=== PATIENT | female | born 1955 | race Caucasian/White ===

== ENCOUNTER → 2021-02-12 09:44 | Outpatient (BNVA) | payer BC, SELFPAY | PROVIDERS: PCP Ophthalmology; Visit Provider Nurse Practitioner Family ==

== ENCOUNTER → 2022-02-23 12:57 | Outpatient (BNVA) | payer BC, SELFPAY | PROVIDERS: PCP Nurse Practitioner Family; Visit Provider Nurse Practitioner Family | DX: G47.33 Obstructive sleep apnea (adult) (pediatric) (principal) ==

== ENCOUNTER 2022-08-24 07:49 | Outpatient (AMB) | payer BC, SELFPAY ==
[2022-08-24 07:55] VITALS: BP 128/78; PULSE 65; O2SAT 98; BMI 29.4
--- NOTE | 2022-08-24 07:55 | MHC.OFFVIS ---
Intake Vital Signs 08/24/22 07:55 Height 5 ft 10 in Weight 205 lb 3 oz BMI 29.4 BP 128/78 Blood Pressure Location Rt brachial Position Sitting Pulse 65 Pulse Source Pulse Oximeter Pulse Oximetry (%) 98 Oxygen Delivery Method Room Air Intake Visit Reasons: 6m follow up Intake Note: Pt presents as a 6 month f/u for MARCELINA. Pt states they are going alright. Reconnaissance Crewmember Required: No Allergies doxycycline Allergy (Mild, Verified 08/24/22 08:00) Itchy Throat shellfish derived Allergy (Verified 08/24/22 08:00) Hives HPI HPI Comments History of Present Illness Details yr-old fe/male presents for follow-up visit. Pt denies any significant interval medical history changes. She reports she is tolerating the last adjust to her APAP settings. Does not notice zaida increased pressure- as her ramp time is longer. She is sleeping well with PAP. She does read in bed on a tablet- but this does not affect her ability to initiate or maintain sleep. She takes her CPAP with her when traveling. Her 90 day APAP reports reveals APAP 5-18 cmH2O w/ 100% overall use, 99% use > 4 hours, average use 6 hrs 12 min, max pressure 17.4 cmH2O, residual AHI 5.3/hr (previous residual AHI on APAP [id number] was 6.7/hr, and prior to that 8.6/hr). ? ? ? PFSH Family History (Updated 08/24/22 @ 08:02 by Tawana Tenorio CMA) Mother Depression Breast cancer Dementia Sister MARCELINA (obstructive sleep apnea) Father Hypertension Social History (Updated 08/24/22 @ 08:02 by Tawana Tenorio CMA) Alcohol intake: current Alcohol intake frequency: holidays/special occasions only Patient Tobacco Use Status: Never used Tobacco Review of Systems Const All systems reviewed & are unremarkable except as noted in HPI and below Physical Exam Vital Signs: Last Vital Signs Pulse 65 08/24/22 07:55 BP 128/78 08/24/22 07:55 Pulse Ox 98 08/24/22 07:55 Oxygen Delivery Method Room Air 08/24/22 07:55 BMI result Body Mass Index 29.4 Const General: no acute distress Orientation/consciousness: patient oriented x3 HEENT Head: Yes normocephalic Resp Effort & Inspection: normal respiratory effort and able to speak in complete sentences Neuro General: patient oriented x3 Psych Mental Status: mental status grossly normal Speech and movement: Clear speech present Attitude: cooperative Results Reviewed Results Reviewed: PAP compliance report- see HPI Assessment & Plan Assessment & Plan (1) Obstructive sleep apnea: Code(s): G47.33 - Obstructive sleep apnea (adult) (pediatric) Plan Residual AHI continues to be higher than goal of < 5/hr, max pressure of 17.4 cmH2O is near upper pressure limit of 18. Pt previously did not tolerate APAP set to 5-20 cmH2O, however pt is willing to retry w/ the longer ramp time. I have adjusted the settings to APAP to 5-20 cmH2O via the [employer] sachi. Clean machine and supplies daily- may use CPAP mask liner wipes.. Change PAP supplies routinely. Pt to call us/respiratory home care company with any concerns f/u in 6 months or sooner prn. Coding Level of Care Code Est Pt Level 3 (06900) Diagnoses Obstructive sleep apnea G47.33
== END 2022-08-24 08:40 | disposition home or self-care (01) ==
PROVIDERS: Visit Provider Nurse Practitioner Family
DX: G47.33 Obstructive sleep apnea (adult) (pediatric) (principal)
CPT/HCPCS: 99213

== ENCOUNTER → 2022-08-24 07:49 | Outpatient (BNVA) | payer BC, SELFPAY | PROVIDERS: Visit Provider Nurse Practitioner Family ==

== ENCOUNTER 2023-02-27 07:51 | Outpatient (AMB) | payer BC, SELFPAY ==
[2023-02-27 08:07] VITALS: BP 122/78; PULSE 56; O2SAT 99; BMI 29.6
--- NOTE | 2023-02-27 08:07 | MHC.OFFVIS ---
Intake Vital Signs 02/27/23 08:07 Height 5 ft 10 in Weight 206 lb BMI 29.6 BP 122/78 Blood Pressure Location Rt brachial Position Sitting Pulse 56 Pulse Source Pulse Oximeter Pulse Oximetry (%) 99 Oxygen Delivery Method Room Air Intake Visit Reasons: 6m follow up/LVM Intake Note: Patient presents for 6 month follow up. Im using my cpap machine, she turned up the cpap and think that's why Im here Allergies doxycycline Allergy (Mild, Verified 02/27/23 08:13) Itchy Throat shellfish derived Allergy (Verified 02/27/23 08:13) Hives Medication List - Last Reconciled 02/27/23 by Allegra Art, RUSSEL bimatoprost 0.01% (Lumigan) 1 drp ophthalmic (eye) DAILY brimonidine 0.1% (Alphagan P) 1 drp ophthalmic (eye) Q8H dorzolamide-timolol 22.3-6.8 mg/mL (Cosopt) 1 drp ophthalmic (eye) BID propranolol ER 80 mg PO DAILY ubrogepant (Ubrelvy) 50 - 100 mg (0.5 - 1 x 100 mg) PO ONCE PRN 30 days HPI HPI Comments History of Present Illness Details 67-yr-old female presents for follow-up visit of MARCELINA Pt would like to discuss a new concern today. She reports she has been having new prolonged episodes of right eye visual aura w/o headache. She describes this as Right eye full visual field blurriness, like a film covering the eye, f/b eye feeling warm/swollen, retro-orbital hot swollen discomfort, the vision becomes cloudier and blurrier. Always feels photophobic. Can have frustration and just wants to sit still. The entire attack last 10 days. There is 1 day where the vision improves, then the episode resolve within a few days. Once has the start of symptoms in the left eye- but did not fully progress.. Denies N/V, red eye, watery eye, facial droop. Has had recent eye exam during an episode- unremarkable Was started on Propranolol Er 80mg qam- and the episodes are shorter- now lasting only 30%. Tried Zolmitriptan- did not help. She does have a h/o sporadic moderate migraine d/t stress since the late - Started w/ unilateral right sided blurry vision f/b right temporal pain a/w seeing pixelated images. Not a/w photo/phonophobia, N/V, allodynia. These would last days. Was Zolmitriptan responsive- however it causes nausea and joint pain. In the past, she has tried Sumatriptan- did not tolerate- caused jaw tightness. Her last Brain MRI w/o contrast was 2-3 yrs after she had 2-3 unprovoked falls. She has is doing well with her CPAP after the last visit when we increased her APAP range. Sleeps better with APAP. Residual AHI is now < 4/hr. 01/28/2023 - 02/26/2023 Compliance Report: Usage days: 30/30 days (100%) >= 4 hours 30 days (100%) Average usage (days used) 6 hours 2 minutes AirSense 10 AutoSet Serial number [id number] Mode AutoSet Min Pressure 5 cmH2O Max Pressure 20 cmH2O EPR Fulltime EPR level 3 Response Standard Therapy Maximum Pressure Maximum: 16.9 Residual AHI: 3.4 PFSH Medical History (Updated 02/27/23 @ 09:46 by RUSSEL Kevin) Glaucoma Family History Mother Depression Breast cancer Dementia Sister MARCELINA (obstructive sleep apnea) Father Hypertension Social History (Updated 08/24/22 @ 08:02 by Tawana Tenorio [facility]) Alcohol intake: current Alcohol intake frequency: holidays/special occasions only Patient Tobacco Use Status: Never used Tobacco Review of Systems Const All systems reviewed & are unremarkable except as noted in HPI and below Physical Exam Vital Signs: Last Vital Signs Pulse 56 02/27/23 08:07 BP 122/78 02/27/23 08:07 Pulse Ox 99 02/27/23 08:07 Oxygen Delivery Method Room Air 02/27/23 08:07 BMI result Body Mass Index 29.6 Const General: no acute distress Orientation/consciousness: patient oriented x3 HEENT Head: Yes normocephalic Resp Effort & Inspection: normal respiratory effort and able to speak in complete sentences Auscultation: clear to auscultation bilaterally Cardio Rate: regular rate Rhythm: regular rhythm Neuro General: patient oriented x3 Psych Mental Status: mental status grossly normal Speech and movement: Clear speech present Attitude: cooperative Results Reviewed Results Reviewed: PAP compliance report- see HPI Assessment & Plan Assessment & Plan (1) Transient visual loss: Comment: Prolonged bouts of right eye vision blurriness/loss lasting up to 10 days Code(s): H53.129 - Transient visual loss, unspecified eye (2) Pain, eye, right: Comment: a/w right eye visual disturbance Code(s): H57.11 - Ocular pain, right eye (3) Migraine with aura: Code(s): G43.109 - Migraine with aura, not intractable, without status migrainosus (4) Obstructive sleep apnea: Code(s): G47.33 - Obstructive sleep apnea (adult) (pediatric) Plan Continue APAP [id number] nightly > 4 hrs, as pt is having good clinical effect from use. Regarding prolonged right eye vision disturbance and eye pain: Will request recent labs from PCP. Pt is advised to undergo Brain MRI w/wo and Brain MRA w/o to assess for secondary etiologies of new onset unilateral visio symptoms in a 67 yo pt, such as inflammatory or vascular processes. Continue Propranolol ER 80mg qam, as this has been helpful- note this does not rule-out secondary etiology for pt's s/s. Trial Ubrogepant 50-100mg at onset of visual aura or migraine attack, may take w/ Zolmitriptan or Ibuprofen. Previous acute headache treatment trials: Sumatriptan- caused jaw pain. Follow-up upon review of above and in 3 months or sooner prn. Orders: Orders MR head/brain wo/w con Today H53.129 - Transient visual loss, unspecified eye, H57.11 - Ocular pain, right eye MR angio head wo con Today H53.129 - Transient visual loss, unspecified eye, H57.11 - Ocular pain, right eye Medications: New ubrogepant (Ubrelvy) take at onset of migraine, may repeat in 2hrs (may take w/ Ibuprofen or Zolmitriptan) 50 - 100 mg (0.5 - 1 x 100 mg) PO ONCE 30 days PRN 16 tabs 3RF migraine headache Coding Level of Care Code Est Pt Level 4 (78382) Diagnoses Transient visual loss H53.129 Pain, eye, right H57.11 Migraine with aura G43.109 Obstructive sleep apnea G47.33
== END 2023-02-27 09:06 | disposition home or self-care (01) ==
PROVIDERS: PCP Nurse Practitioner Family; Visit Provider Nurse Practitioner Family
DX: H53.129 Transient visual loss, unspecified eye (principal); H57.11 Ocular pain, right eye; G43.109 Migraine with aura, not intractable, without status migrainosus; G47.33 Obstructive sleep apnea (adult) (pediatric)
CPT/HCPCS: 99214

== ENCOUNTER → 2023-02-27 07:51 | Outpatient (BNVA) | payer BC, SELFPAY | PROVIDERS: PCP Nurse Practitioner Family; Visit Provider Nurse Practitioner Family ==

== ENCOUNTER 2023-02-28 07:53 | Outpatient (REF) | payer BC, SELFPAY | END 2023-02-28 07:54 | disposition home or self-care (01) | LOC: HO.SH 07:53 | PROVIDERS: Visit Provider Nurse Practitioner Family | DX: Z01.118 Encounter for examination of ears and hearing with other abnormal findings (principal); H90.3 Sensorineural hearing loss, bilateral | CPT/HCPCS: 92557 ==

== ENCOUNTER 2023-03-03 09:44 | Outpatient (REF) | payer SELFPAY ==
--- NOTE | 2023-03-03 10:39 | MHC.AU.HA1 ---
Hearing Aid Evaluation Date of Visit: 03/03/23 Historical Information: Description of Hearing: Within normal gradually sloping to moderate to severe sensorineural hearing loss, bilateral. Summary: Hearing recently evaluated on 02/28/23. Ready to proceed with amplification. Reviewed style, performance levels, costs. Karin does get out and about in various social situations and would like to hear as well as possible in those more challenging environments. She would like rechargeable aids for convenience. She has an iPhone. Hearing Aid Prescription: Based on the individual?s shared listening needs, communication environments, dexterity, desire for connectivity, and personal preferences, the following prescription for amplification has been made: Right ear: Make, Model, Color: Ot[employer] Universe Real 1 miniRITE R terracotta Battery Size: Rechargeable Cellophane Bag Machine Operator/Slim Tube: 2/ Type of Earmold/Dome/CShell/SlimTip: 8mm open upton Accessories/Assistive Technology Recommended: commissioned sales associate Plan of Care: Patient wishes to purchase hearing aids as prescribed Action Taken/Action Needed: Medical Clearance to be requested from PCP/ENT Hearing Instrument Fitting to be scheduled when materials arrive Primary Diagnosis: H90.3 Bilateral Sensorineural Hearing Loss Signature: Provider: Jodi Llamas, CCC-A
== END 2023-03-03 09:45 | disposition home or self-care (01) ==
LOC: HO.HAP 09:44
PROVIDERS: Visit Provider Nurse Practitioner Family
DX: Z46.1 Encounter for fitting and adjustment of hearing aid (principal); H90.3 Sensorineural hearing loss, bilateral
CPT/HCPCS: 92590

== ENCOUNTER 2023-03-16 12:50 | Outpatient (REF) | payer SELFPAY ==
--- NOTE | 2023-03-17 11:57 | MHC.AU.HA2 ---
Hearing Instrument Fitting- Adult- Binaural Date of Visit: 03/17/23 Hearing Instruments Dispensed: Right Ear: Make, Model, Color, Serial Number: Oticon Real 1 miniRITE R terracotta SN [id number] Drawing In Machine Tender Repair Warranty: 04/06/2026 Drawing In Machine Tender Loss and Damage Warranty: 04/06/2026 [facility] Service Plan: 03/16/26 Battery Size: Rechargeable Electric Locomotive Firer/Fireman/Slim Tube: Earmold/Dome/CShell/SlimTip: 6mm open upton Type of Wax Guard: ProWax miniFit Left Ear: Make, Model, Color, Serial Number: Oticon Real 1 miniRITE R terracotta SN [id number] Drawing In Machine Tender Repair Warranty: 04/06/2026 Drawing In Machine Tender Loss and Damage Warranty: 04/06/2026 [facility] Service Plan: 03/16/26 Battery Size: Rechargeable Electric Locomotive Firer/Fireman/Slim Tube: Earmold/Dome/CShell/SlimTip: 6mm open upton Type of Wax Guard: ProWax miniFit Accessories/Assistive Technology: Oticon Reclamation Furnace Operator 1 SN [id number] Oticon Smart Reclamation Furnace Operator SN [id number] Summary of Fitting: Karin is here for fitting with Real 1 miniRITE R. Programmed with DSL 5.0 and adjusted based on real ear measurements. Her initial impression was very positive. Reduced to level 2 to help ease her into the sound of her own voice, intend on increasing to level 3 at follow up. Reviewed basics of use, cleaning/care, insertion/removal. Programmed with phone and downloaded sachi. Follow up in 2-3 weeks. Recommendations: Recommendations: A hearing instrument follow-up is recommended in 2-3 weeks. Diagnosis Code(s): Primary Diagnosis: H90.3 Bilateral Sensorineural Hearing Loss Signature: Provider: Maddie Sofia, CCC-A
== END 2023-03-16 12:51 | disposition home or self-care (01) ==
LOC: HO.HAP 12:50
PROVIDERS: Visit Provider Nurse Practitioner Family
DX: Z46.1 Encounter for fitting and adjustment of hearing aid (principal); H90.3 Sensorineural hearing loss, bilateral
CPT/HCPCS: V5262; V5299

== ENCOUNTER 2023-04-04 12:43 | Outpatient (REF) | payer SELFPAY | END 2023-04-04 12:44 | disposition home or self-care (01) | LOC: HO.HAP 12:43 | PROVIDERS: Visit Provider Nurse Practitioner Family | DX: Z13.89 Encounter for screening for other disorder (principal) ==

== ENCOUNTER 2023-05-29 08:46 | Outpatient (AMB) | payer BC, SELFPAY ==
--- NOTE | 2023-05-29 09:10 | A.OFFVIS_ITS ---
Vital Signs 05/29/23 09:12 Height 5 ft 10 in Weight 213 lb BMI 30.6 BP 128/84 Blood Pressure Location Rt brachial Position Sitting Pulse 66 Pulse Source Pulse Oximeter Pulse Oximetry (%) 99 Oxygen Delivery Method Room Air Intake Visit Reasons: 3 mnts-CONF Intake Note: Patient presents for 3 month follow up. Patient has ocular migraines that last a couple days, wants MRi results unable to print them. Allergies doxycycline Allergy (Mild, Verified 05/29/23 09:16) Itchy Throat shellfish derived Allergy (Verified 05/29/23 09:16) Hives Medication List - Last Reconciled 05/29/23 by Allegra Art, RUSSEL bimatoprost 0.01% (Lumigan) 1 drp ophthalmic (eye) DAILY brimonidine 0.1% (Alphagan P) 1 drp ophthalmic (eye) Q8H dorzolamide-timolol 22.3-6.8 mg/mL (Cosopt) 1 drp ophthalmic (eye) BID propranolol ER 80 mg PO DAILY ubrogepant (Ubrelvy) 50 - 100 mg (0.5 - 1 x 100 mg) PO ONCE PRN 30 days HPI Comments Details: 68-yr-old female presents for f/u visit. Pt denies any significant interval medical changes. Brain and Orbit MRI was normal. Brain MRA was not completed. Initially, the Propranolol was helpful, but in the last month or two, she has had 2 prolonged attacks lasting up to 10 days. Tolerating the Propranol ER 80mg well- no increased fatigue, no lightheadedness. Her HR today is 66bpm. Baseline headache characteristics: Right eye visual aura w/o headache. She describes this as Right eye full visual field blurriness, like a film covering the eye, f/b eye feeling warm/swollen, retro-orbital hot swollen discomfort, the vision becomes cloudier and blurrier, may feel frustration and just wants to sit still. Always feels photophobic. Denies N/V, red eye, watery eye, facial droop. The entire attack lasts 10 days, during which 1 day where the vision improves some, then the episode resolve within a few days. Once has the start of symptoms in the left eye- but did not fully progress. Pt is compliant w/ CPAP. Sleeps well w/ use. Does not have nightmares when uses CPAP. Compliance Report Usage 04/29/2023 - 05/28/2023 Usage days 30/30 days (100%) >= 4 hours 29 days (97%) < 4 hours 1 days (3%) Usage hours 181 hours 55 minutes Average usage (total days) 6 hours 4 minutes Average usage (days used) 6 hours 4 minutes AirSense 10 AutoSet Serial number [id number] Mode AutoSet Min Pressure 5 cmH2O Max Pressure 20 cmH2O, w/ Maximum: 16.6 cmH2O. Residual AHI: 2.2/hr. [facility] Medical History (Updated 02/27/23 @ 09:46 by RUSSEL Kevin) Glaucoma Family History Mother Depression Breast cancer Dementia Sister MARCELINA (obstructive sleep apnea) Father Hypertension Social History (Updated 08/24/22 @ 08:02 by Tawana Tenorio CMA) Alcohol intake: current Alcohol intake frequency: holidays/special occasions only Patient Tobacco Use Status: Never used Tobacco Physical Exam Vital Signs: Last Vital Signs Pulse 66 05/29/23 09:12 BP 128/84 05/29/23 09:12 Pulse Ox 99 05/29/23 09:12 Oxygen Delivery Method Room Air 05/29/23 09:12 BMI result Body Mass Index 30.6 Const General: cooperative and no acute distress Orientation/consciousness: patient oriented x3 Resp Effort & Inspection: normal respiratory effort and able to speak in complete sentences Neuro General: patient oriented x3 Cranial nerves: Yes CN's II-XII intact bilaterally Cognition (Neuro): normal cognition Psych Appearance: grossly normal Mental Status: mental status grossly normal Speech and movement: Normal speech and movement present Affect: normal affect Attitude: cooperative Assessment & Plan Assessment & Plan (1) Migraine with aura: Code(s): G43.109 - Migraine with aura, not intractable, without status migrainosus Category: Medical (2) Pain, eye, right: Comment: a/w right eye visual disturbance Code(s): H57.11 - Ocular pain, right eye Category: Medical (3) Transient visual loss: Comment: Prolonged bouts of right eye vision blurriness/loss lasting up to 10 days Code(s): H53.129 - Transient visual loss, unspecified eye Category: Medical (4) Obstructive sleep apnea: Code(s): G47.33 - Obstructive sleep apnea (adult) (pediatric) Category: Medical Plan Continue APAP [id number] nightly > 4 hrs, as pt is having good clinical effect from use. ? Regarding prolonged right eye vision disturbance and eye pain: Reviewed labs- unremarkable. ESR- 16, YEHUDA- negative. Recent eye exam- stable glaucoma. Reviewed Brain and Orbit MRI w/wo- normal. Pt again advised to undergo Brain MRA w/o to assess for secondary etiologies of new onset unilateral vision symptoms in a 67 yo pt, such as inflammatory or vascular processes. Increase Propranolol ER from 80mg qam to 120mg qam, as this has been helpful- note this does not rule-out secondary etiology for pt's s/s. Monitor HR. Trial Ubrogepant 50-100mg at onset of visual aura or migraine attack, may take w/ Zolmitriptan or Ibuprofen. We are working on prior auth for this now. Previous acute headache treatment trials: Sumatriptan- caused jaw pain. Rizatriptan ineffective. ? Follow-up upon review of above and in 6 months or sooner prn. Medications: New propranolol ER 120 mg PO DAILY 30 caps 6RF 30 days Coding Level of Care Code Est Pt Level 4 (01700) Diagnoses Migraine with aura G43.109 Pain, eye, right H57.11 Transient visual loss H53.129 Obstructive sleep apnea G47.33
[2023-05-29 09:12] VITALS: BP 128/84; PULSE 66; O2SAT 99; BMI 30.6
== END 2023-05-29 09:52 | disposition home or self-care (01) ==
PROVIDERS: PCP Nurse Practitioner Family; Visit Provider Nurse Practitioner Family
DX: G43.109 Migraine with aura, not intractable, without status migrainosus (principal); H57.11 Ocular pain, right eye; H53.129 Transient visual loss, unspecified eye; G47.33 Obstructive sleep apnea (adult) (pediatric)
CPT/HCPCS: 99214

== ENCOUNTER → 2023-05-29 08:46 | Outpatient (BNVA) | payer BC, SELFPAY | PROVIDERS: PCP Nurse Practitioner Family; Visit Provider Nurse Practitioner Family ==

== ENCOUNTER 2023-08-16 13:57 | Outpatient (REF) | payer SELFPAY ==
--- NOTE | 2023-08-16 14:24 | MHC.AU.HA3 ---
Hearing Instrument Follow-Up- Binaural Date of Visit: 08/16/23 Right Ear: Make, Model, Color, Serial Number: Oticon Real 1 miniRITE R SN: [id number] Color: [place]ac[place] Licensed Veterinary Technician Repair Warranty: 04/06/2026 Licensed Veterinary Technician Loss and Damage Warranty: 04/06/2026 [facility] Service Plan: 03/16/2026 Battery Size: Rechargeable Paraprofessional Interpreter/Slim Tube: 1 Earmold/Dome/CShell/SlimTip:6mm open upton dome with retention tail Type of Wax Guard: miniFit Dispensed By: [facility] Date of Fittin03/16/2023 Left Ear: Make, Model, Color, Serial Number: Oticon Real 1 miniRITE R SN: [id number] Color: Terracotta Licensed Veterinary Technician Repair Warranty: 04/06/2026 Licensed Veterinary Technician Loss and Damage Warranty: 04/06/2026 [facility] Service Plan: 03/16/2026 Battery Size: Rechargeable Paraprofessional Interpreter/Slim Tube: 2 Earmold/Dome/CShell/SlimTip: 6mm open upton dome with retention tail Type of Wax Guard: miniFit Dispensed By: [facility] Date of Fittin03/16/2023 Follow-Up Summary: Karin reported left dome continuously slips out of ear. Has always been an issue but just thought she needed to get used to it; however, problem has persisted. Constantly pushing it back in and has fallen out of ear. No issues with right hearing aid. Tried 8mm dome on left ear but too full/uncomfortable in ear. Switched to length 2 web solutions architect on left ear with 6mm dome. Difficult to fully assess fit in office as Karin reported hearing aid moved throughout the course of the day but noted improvement in security of fit in office. Will call if problem persists. Recommendations: Hearing instrument follow-up or maintenance as needed. Please contact our clinic with any questions or concerns. Patient will call if problems persist. Diagnosis Code(s): Primary Diagnosis: H90.3 Bilateral Sensorineural Hearing Loss Signature: Provider: Jodi Will, [facility]
== END 2023-08-16 13:58 | disposition home or self-care (01) ==
LOC: HO.HAP 13:57
PROVIDERS: Visit Provider Nurse Practitioner Family
DX: Z13.89 Encounter for screening for other disorder (principal)

== ENCOUNTER 2023-10-20 13:16 | Outpatient (REF) | payer SELFPAY | END 2023-10-20 13:17 | disposition home or self-care (01) | LOC: HO.HAP 13:16 | PROVIDERS: Visit Provider Nurse Practitioner Family | DX: Z13.89 Encounter for screening for other disorder (principal) ==

== ENCOUNTER 2024-05-21 08:23 | Outpatient (AMB) | payer BC, SELFPAY ==
--- OUTSIDE RECORDS SUMMARY | 2024-05-21 08:29 | XMS_ITS ---
Author Organization [facility] Address [address] [place] [address] Care Team Providers Care Internet Sales Manager Name Role Phone Poppy Castillo MD Primary Care Provider UnavailAlexia Calvert Unavailable [phone] Margaux Farmer Unavailable [phone] Allergies Allergen (clinical drug ingredient) Drug/Non Drug Allergy documented on EMR Reaction Allergy Type Onset Date Status latanoprost / netarsudil Rocklatan Unknown Drug Allergy Active doxycycline Doxycycline Unknown Drug Allergy Act aidan Shellfish (FN) Shellfish-derived Products Unknown Drug Allergy Active REASON FOR VISIT pt states last pcp visit 09/2022, pt states last pcp visit 09/2022, Heel pain, Skin Problem Medications Medication SIG (Take, Route, Frequency, Duration) Notes Start Date End Date Status Physical Therapy . . . 2-3x/week for 3- 4 weeks 06/30/2021 Not-Taking Feldene 20 MG 1 capsule with food Orally Once a day for 30 day(s) 06/30/2021 Not-Taking Zioptan 0.0015 % 1 drop into affected eye in the evening Ophthalmic Once a day Not-Taking Ciclopirox Olamine 0.77 % 1 application Externally Twice a day for 30 days Active Feldene 20 MG 1 capsule with food Orally Once a day for 30 day(s) 07/01/2020 Not-Taking Physical Therapy . . . 2-3x/week for 3- 4 weeks 12/08/2022 Active Clotrimazole-Betamethason e 1-0.05 % 1 application Externally Twice a day Active Pantoprazole Sodium 20 MG 1 tablet Orall y Once a day for 30 day(s) Active Dorzolamide HCl-Timolol Mal 22.3-6.8 MG/ML 1 drop into affected eye Ophthalmic Twice a day Active Travatan Z 0.004 % 1 drop into affected eye in the evening Ophthalmic Once a day Active Propranolol HCl ER 80 MG 1 capsule Orall y Once a day Active Social History Tobacco Use: Social History Observation Description Date Details (start date - stop date) Never Smoker NA - NA Tobacco Use/Smoking Question Answer Notes Are you a: nonsmoker Alcohol Screen Question Answer Notes Did you have a drink contain ing alcohol in the past year? Yes How often did you have a dri nk containing alcohol in the past year? 2 to 4 times a month (2 points) Points 2 Interpretation Negative Tobacco use other than smoking: Question Answer Notes Are you an other tobacco user? No Vital Signs Height 5ft 10in in 02/27/2023 Weight 197 lbs 02/27/2023 BMI 28.26 kg/m2 02/27/2023 Encounters Encounter Location Date Provider Diagnosis [facility] [address] 02/27/2023 Margaux Perica Plantar fasciitis, bilateral M72.2 and Tinea pedis of both feet B35.3 Assessments Encounter Date Diagnosis (ICD Code) Assessment Notes Treatment Notes Treatment Clinical Notes Section Notes 02/27/2023 Plantar fasciitis, bilateral (ICD-10 - M72.2) 02/27/2023 Tinea pedis of both feet (ICD-10 - B35.3) Plan Of Treatment Medication Medication Name Sig Start Date Stop Date Notes Ciclopirox Olamine 0.77 % 1 application Externally Twice a day for 30 days Next Appt Details Follow Up: prn, Reason: Procedure Notes * Category Sub-Category Detail Notes Injection Tendon Sheath or Fascia 59620, J 0702 Injection - #2 LEFT foot, Plantar Fascia w/ mixture of Celestone Soluspan 3mg and 1cc 1 percent Xylocaine Plain anes. utilizing aseptic technique. The patient tolerated the procedure well. A dry sterile dressing was applied. Post injection instructions were dispensed, verbally discussed, and confirmed understood by the patient. I explained that a steroid and local anesthetic injections are administered to relieve pain and inflammation and thereby meant to improve function. I explained the possible complications including but not limited to signs/symptoms of steroid flare, infection, bruising, atrophy, discoloration of skin, change/deviation in toe position, and that additional injections may be necessary, Patient relates post-procedural pain assessment improved at ( 0-1) out of 10 Progress Notes * Karin CASTILLO LDOB:1955 (67 yo F)Acc No.[id number]:02/27/2023 Progress Notes Patient:?Karin Castillo Provider:?Margaux Farmer DPM :1955???Age:67 Y???Sex:Female D ate:02/27/2023 [facility] Pcp:Poppy Castillo MD Subjective: * Chief Complaints: * ???Pt states last pcp visit t states last pcp visit 09/2022Heel painSkin Problem * HPI: ???Heel pain:?Nature:?tenderness, sharp pain, stiffness , aching , throbbing.?Location:?Proximal plantar aspect of Heel , Arches , LEFT greater than Right.?Duration:?several months.?Onset/Cause:?unknown?, denies trauma.?Course:?improved , at [id number]%.?Aggrevated:?standing, walking, walking first thing after rest , shoe gear.?Treatments:?rest , change in shoes, NSAIDS, labs negative , physical therapy, corticosteriod injection x 1.?Severity/Quality:?Pre-injection procedure pain assessment - ( 7 ) out of 10.?Skin problems:?Location:?B/L .?Duration:?several days.?Course:?worse.? * ROS:?General/Constitutional:?Nausea?denies, denies.?Vomiting?denies, denies.?Hunger Thirst?denies, denies.?Loss appetite?denies, denies.?Chills?denies, denies.?Fatigue?denies, denies.?Fever?denies, denies.?Night Sweats denies, denies.?Unexplained weight loss?denies, denies.?Unexplained weight gain?denies, denies.?HEENTM:?Dentures?denies, denies.?Dizziness?denies, denies.?Glasses/contacts?denies, denies.?Retinopathy?denies, denies.?Blurred/double vision?denies, denies.?TMJ?denies, denies.?Discharge/drainage?denies, denies.?Implants?denies, denies.?Sore throat?denies, denies.?Dental implants?denies, denies.?Hard of hearing ?denies, denies.?Difficulty chewing/swallowing/speaking?denies, denies.?Nose bleeds?denies, denies.?Sore mouth?denies, denies.?Respiratory:?On Oxygen?denies, denies.?Pneumonia/pleurisy?denies, denies.?Bronchitis?denies, denies.?Emphysema?denies, denies.?Coughing?denies, denies.?Cough blood?denies, denies.?Shortness of breath?denies, denies.?Wheezing?denies, denies.?Cardiovascular:?Pacemaker?denies, denies.?MVP?denies, denies.?WPW?denies, denies.?CHF?denies, denies.?Heart attack?denies, denies.?Septal defect?denies, denies.?Rapid beat?denies, denies.?Chest pain ?denies, denies.?Atrial Fib.?denies, denies.?Murmur/Palpitations?denies, denies.?Gastrointestinal:?Hemorrhoids?denies, denies.?Stomach/Abdominal pain?denies, denies.?Dark blood stool?denies, denies.?Irritable bowel ?denies, denies.?Constipation?denies, denies.?Diarrhea?denies, denies.?Hematology:?Swelling?denies, denies.?Clots?denies, denies.?Varicose Veins?denies, denies.?Bruising?denies, denies.?Bleeding problem?denies, denies.?Genitourinary:?Blood urine?denies, denies.?Frequent/Painfu/urination/bladder control?denies, denies.?Kidney stones?denies, denies.?Infection (UTI)?denies, denies.?Nephropathy?denies, denies.?sex trans dis (STD)?denies, denies.?Prostate?denies, denies.?Musculoskeletal:?Hammertoes?denies, denies.?Bunions?denies, denies.?Back Pain?denies, denies.?Muscle Cramps/ Resting?denies, denies.?Muscle cramps / walking?denies, denies.?Generalized aches and pains?admits, admits.?Weakness?denies, denies.?Integ.:?Alexander?denies, denies.?Scars?denies, denies.?Corns/calluses?denies, denies.?Ingrown nails?denies, denies.?Painful nails?denies, denies.?Open Sores?denies, denies.?Rashes?denies, denies.?Neurologic:?Difficulty sleeping?denies, denies.?Brain disorder?denies, denies.?Numbness?denies, denies.?Balance trouble?denies, denies.?Confusion?denies, denies.?Fainting/blackouts?denies, denies.?Tingling?denies, denies.?Tremors?denies, denies.? * Medical History:? * Surgical History:?Lens repla cement both eyes Xen replacement * Hospitalization/Major Diagno stic Procedure:?No Hospitalization History. * Family History:?Mother: mariangel amaya, heart attack, high blood pressure.?Father: , high blood pressure.?Maternal Grand Mother: stroke.? * Social History:?Tobacco Use:?Tobacco Use/Smoking?Are you a:?nonsmoker ?Tobacco use other than smoking?Are you an other tobacco user??No ???Drugs/Alcohol:?Drugs?Have you used drugs other than those for medical reasons in the past 12 months??No ?Alcohol Screen?Did you have a drink containing alcohol in the past year??Yes ?How often did you have a drink containing alcohol in the past year??2 to 4 times a month (2 points) ?Points?2 ?Interpretation?Negative ???Miscellaneous:?Caffeine: yes, frequency:, 2-3 cups per day. ?Exercise: yes, walking, gym. ?Marital status: . ?Occupation: working at home. * Medications:?TakingPropranol ol HCl ER 80 MG Capsule Extended Release 24 Hour 1 capsule Orally Once a dayTravatan Z 0.004 % Solution 1 drop into affected eye in the evening Ophthalmic Once a dayDorzolamide HCl-Timolol Mal 22.3-6.8 MG/ML Solution 1 drop into affected eye Ophthalmic Twice a dayPantoprazole Sodium 20 MG Tablet Delayed Release 1 tablet Orally Once a dayClotrimazole-Betamethasone 1-0.05 % Cream 1 application Externally Twice a dayPhysical Therapy . . . . 2-3x/weekTaking Propranolol HCl ER 80 MG Capsule Extended Release 24 Hour 1 capsule Orally Once a dayTaking Travatan Z 0.004 % Solution 1 drop into affected eye in the evening Ophthalmic Once a dayTaking Dorzolamide HCl-Timolol Mal 22.3-6.8 MG/ML Solution 1 drop into affected eye Ophthalmic Twice a dayTaking Pantoprazole Sodium 20 MG Tablet Delayed Release 1 tablet Orally Once a dayTaking Clotrimazole-Betamethasone 1- 0.05 % Cream 1 application Externally Twice a dayTaking Physical Therapy . . . . 2-3x/weekNot-Taking/PRNFeldene 20 MG Capsule 1 capsule with food Orally Once a dayPhysical Therapy . . . . 2-3x/weekFeldene 20 MG Capsule 1 capsule with food Orally Once a dayZioptan 0.0015 % Solution 1 drop into affected eye in the evening Ophthalmic Once a dayMedication List reviewed and reconciled with the patientNot-Taking/PRN Feldene 20 MG Capsule 1 capsule with food Orally Once a dayNot-Taking/PRN Physical Therapy . . . . 2-3x/weekNot-Taking/PRN Feldene 20 MG Capsule 1 capsule with food Orally Once a dayNot-Taking/PRN Zioptan 0.0015 % Solution 1 drop into affected eye in the evening Ophthalmic Once a dayMedication List reviewed and reconciled with the patient * Allergies:?Shellfish-derived ProductsDoxycyclineRocklatanyes[Allergies Verified] Objective: * Vitals:?Ht: 5ft 10in, Wt: 19 7, BMI:28.26, Shoe size: 10. * Examination: ???General Examination: ?GENERAL APPEARANCE:?Reveals a pleasant, alert, well-nourished, well- developed, well hydrated individual, who demonstrates proper attention to hygiene/body habitus, and is in no acute distress, Pt serves as own?historian for office visit today.?ORIENTED:?person, place, and time.?Neurological: ?SENSORY:?Neurological exam reveals intact sensorium, pain sensation normal, vibration sensation intact, pinprick sensation is normal in the lower extremities, Pt denies, anesthesia, burning, paresthesia, tingling, B/L.?TINEL'S COMPRESSION:?Negative tarsal tunnel, teofilo pedis, and medial calcaneal nerves.?DEEP TENDON REFLEXES:?Achilles, 2/4, B/L.?Vascular: ?DP PULSES:?3/4, B/L.?PT PULSES:?3/4, B/L.?CAPILLARY FILL TIME:?immediate, all digits, B/L.?SKIN TEMPERTURE GRADIENT OF THE LOWER EXTERMITIES:?warm to cool, proximal to distal, B/L.?HAIR GROWTH/TEXTURE/ELASTICITY/TURGOR:?normal, B/L.?PIGMENTATION:?normal, B/L.?EDEMA:?absent, B/L.?Dermatologic: ?SKIN FINDINGS:?Skin shows sign(s) of, erythema, scaling, in a moccasin fashion, no fissure(s) present, Left.?Orthopedic: ?MUSCLE STRENGTH:?5/5 all groups in a symmetrical fashion , B/L.?FOOT MORPHOLOGY:? Pes Planus structure, Decreased Ankle joint dorsiflexion ROM, knee extended.?Heel Pain: ?INSPECTION REVEALS:?Pain on Palpation to Plantar Fascia med. and central bands, intrinsic musc., infra-calcaneal bursa, and med calc tubercle, LEFT, No pain: posterior/superior heel, achilles bursa/tendon, sinus tarsi, peroneals, or with lateral heel compression; no limited STJ ROM, calor, or ecchymosis.? Assessment: * Assessment: 1.?Tinea pedis of both feet - B35.3 (Primary), Acute problem, Uncomplicated (3)?2.?Plantar fasciitis, bilateral - M72.2? Plan: * Treatment: * Procedures:?Injection:?Tendon Sheath or Fascia?26714, J0702 Injection - #2 LEFT foot, Plantar Fascia w/ mixture of Celestone Soluspan 3mg and 1cc 1 percent Xylocaine Plain anes. utilizing aseptic technique. The patient tolerated the procedure well. A dry sterile dressing was applied. Post injection instructions were dispensed, verbally discussed, and confirmed understood by the patient. I explained that a steroid and local anesthetic injections are administered to relieve pain and inflammation and thereby meant to improve function. I explained the possible complications including but not limited to signs/symptoms of steroid flare, infection, bruising, atrophy, discoloration of skin, change/deviation in toe position, and that additional injections may be necessary, Patient relates post-procedural pain assessment improved at ( 0-1) out of 10.? * Procedure Codes:?45025 INJ T ENDON SHEATH/LIGAMENT, Modifiers: XS J0702 INJ BETAMETHSN ACTAT&SOD PHOSPH-3MG * Preventive Medicine:? ??Counseling:?Discussion:?-13: Office or other outpatient visit for the evaluation and management of an established patient, which required a medically appropriate history and/or examination and LOW level of DECISION MAKING for: 1 STABLE ACUTE UNCOMPLICATED PROBLEM, 2 OR MORE MINOR PROBLEMS, OR 1 STABLE CHRONIC PROBLEM, THAT POSE(S) A LOW RISK FOR MORBIDITY/MORTALITY. The visit on the day of the encounter encompassed interpreting the data and educating the patient as to the nature of their condition, treatment options available according to their individual PMH, meds, allergies, and overall health/living conditions, as well as any potential risks or complications that may occur from a failure to adhere to, and participate in, the recommended course of therapy. The discussion included a complete verbal, and/or written explanation of the examination results, any x-rays taken, the proposed diagnosis, and outline of the treatment plan. A schedule for future care needs was also explained. The patient verbalized an understanding of the instructions at this time and agreed to be an active participant in their treatment. If the patient should think of any questions or concerns after the visit, I have encouraged the patient to call the office.?P.R.I.C.E.:?The patient was counseled on the use of P.R.I.C.E. and NSAIDS (if well tolerated) to aid in the recovery from their painful condition.?Physical Therapy:?Continue Physical therapy.?Steriod Injection:?I explained that a steroid and local anesthetic injections are administered to relieve pain and inflammation and thereby meant to improve function. I explained the possible complications including but not limited to signs/symptoms of steroid flare, infection, bruising, atrophy, discoloration of skin, change/deviation in toe position, and that additional injections may be necessary, cortisone post-injection informative educational handout was dispensed to and reviewed with the patient.?Tinea Pedis:?The patient was counseled on the diagnosis, potential etiologies, and treatment options for their skin condition. We discussed the risks and benefits of each option from performing no treatment, to utilizing OTC topical skin creams, prescription topical creams, customized compounded topical medications, and, if necessary, to utilize oral antifungal therapy. We discussed the advantages and disadvantages of each possible treatment and importance for adherence to all the recommended therapies for optimum success and avoid potential complications such as open sore/infection/possible hospitalization. We discussed the potential effectiveness of each topical preparation as well as each ones possible side effects and/or patient medication interactions if oral therapy is selected. Patient questions re: the advantages and disadvantages of each treatment choice, medication use/dosage, successful outcomes, and application consistency were reviewed and the patient verbalized that all answers were clearly understood. The patient was told they can help alleviate symptoms by utilizing moisture absorbant innersoles with activated charcoal and baking soda, applying antifungal sprays daily, aerating toe web spaces at night by putting cotton or lambs wool between the toes, alternating shoe gear daily if possible so they can dry out, changing socks at least once during the day, wearing well-ventilated shoes or sandals. The patient has decided to apply antifungal skin creams to their feet as directed. Rx was sent to their pharmacy at the time of visit.? * Follow Up:?prn * Images: * Sign off status: Completed true * Provider:?Margaux Farmer DPM Date:? Generated for Zaid torrez/Bryn/Andrey on:?05/21/2024 08:29 AM EDT History and Physical Notes * HPI (History of Present Illness) Category Sub-Category Detail Notes Category Not es Heel pain Duration: several months Nature: tenderness, sharp pa in, stiffness , aching , throbbing Severity/Quality: Pre-injection proced ure pain assessment - ( 7 ) out of 10 Location: Proximal plantar asp ect of Heel , Arches , LEFT greater than Right Onset/Cause: unknown , denies tra ashely Aggravated: standing, walking, w alking first thing after rest , shoe gear Course: improved , at approx [id number] Treatments: rest , change in collins es, NSAIDS, labs negative , physical therapy, corticosteriod injection x 1 Skin problems Location: B/L Duration: several days Course: worse Examination Category Sub-Category Detail Notes Category Not es Heel Pain INSPECTION REVEALS: Pain on Palp ation to Plantar Fascia med. and central bands, intrinsic musc., infra-calcaneal bursa, and med calc tubercle, LEFT, No pain: posterior/superior heel, achilles bursa/tendon, sinus tarsi, peroneals, or with lateral heel compression; no limited STJ ROM, calor, or ecchymosis Neurological SENSORY: Neurological exa m reveals intact sensorium, pain sensation normal, vibration sensation intact, pinprick sensation is normal in the lower extremities, Pt denies, anesthesia, burning, paresthesia, tingling, B/L TINEL'S COMPRESSION: Negative tarsal usama bonnie, teofilo pedis, and medial calcaneal nerves DEEP TENDON REFLEXES: Achilles, 2/4, B/L Dermatologic SKIN FINDINGS: Skin shows sign( s) of, erythema, scaling, in a moccasin fashion, no fissure(s) present, Left Orthopedic FOOT MORPHOLOGY: Pes Planus stru cture, Decreased Ankle joint dorsiflexion ROM, knee extended MUSCLE STRENGTH: 5/5 all groups in a symmetrical fashion , B/L General Examination GENERAL APPEARANCE: Reveals a pleasant, alert, well- nourished, well-developed, well hydrated individual, who demonstrates proper attention to hygiene/body habitus, and is in no acute distress, Pt serves as own historian for office visit today ORIENTED: person, place, and t arturo Vascular DP PULSES (B): 3/4, B/L PT PULSES (B): 3/4, B/L CAPILLARY FILL TIME: immediate, all digi ts, B/L TEMPERTURE GRADIENT (C): warm to cool, p roximal to distal, B/L TROPHIC CONDITION-TEXTURE/ELASTICITY/TURGOR/HAIR GROWTH (B): normal, B/L EDEMA (C): absent, B/L PIGMENTATION: normal, B/L
--- OUTSIDE RECORDS SUMMARY | 2024-05-21 08:30 | XMS_ITS ---
Author Name [facility] Organization Unknown History of Medication Use Medication Directions Dispensed Refills Start Date End Date Stat meloxicam (MOBIC) 7.5 MG tablet Take 1 tablet (7.5 mg total) by mouth daily. 05/09/2023 active Problems Problem Status Onset Date Problem Type Date of Resoluti on Source Pain in right ankle and joints of right foot active EncounterDiagnosis[facility] Pain in left ankle and joints of left foot active EncounterDiagnosisAct [facility] Plantar fasciitis active EncounterDiagnosisAct [facility] Finger injury, right, initial encounter active EncounterDiagnosisAct [facility] Encounters Encounter Type Encounter Reason Primary Diagnosis Location Date Ambulatory Pain in left ankle and joints of left foot Pain in left ankle and joints of left foot [facility] 05/09/2023 Ambulatory Pain in left ankle and joints of left foot Pain in left ankle and joints of left foot [facility] 05/09/2023 Care Team Organization Name Specialty Phone Email Start Date End Da te [facility] JESUS DASH Primary [facility] 05/09/2023 [facility] JESUS DASH Primary Care 05/09/2023 04/24/2024 [facility] NO PCP Primary Care 05/05/2023 [facility] 04/14/2023 [facility] 01/27/2022
--- OUTSIDE RECORDS SUMMARY | 2024-05-21 08:30 | XMS_ITS | Clinical Summary ---
Author Organization [facility] Address [address] [place] [address] Care Team Providers Care Bottling Equipment Sales Representative Name Role Phone Poppy Castillo MD Primary Care Provider [phone] Allergies Active Allergy Reactions Criticality Noted Date Comments Doxycycline Other (See Comments) 05/09/2023 UPSETS THROAT Netarsudil-Latanoprost Other (See Comments) 03/2023 EYE IRRITATION Medications Medication Sig Dispensed Refills Start Date End Date Status meloxicam (MOBIC) 7.5 MG tabletIndications:Jean n in left ankle and joints of left foot Take 1 tablet (7.5 mg total) by mouth daily. 21 tablet 1 05/09/2023 Active Active Problems No known active problems Social History Tobacco Use Types Packs/Day Years Used Date Smoking Tobacco: Never Assessed Sex and Gender Information Value Date Recorded Sex Assigned at Not on file Gender Identity Female 05/09/2023 8:30 AM EDT Sexual Orientation Not on file Plan of Treatment Health Maintenance Due Date Last Done Comments Hepatitis C Virus Screening 1955 DTaP/Tdap/Td Vaccines (1 - Tdap) 1976 Mammogram 1997 Colonoscopy 2002 Pneumococcal Vaccines 50+ (1 of 1 - PCV) 04/12/2007 Zoster (Shingles) Vaccine (1 of 2) 04/12/2007 DXA Bone Density (Females,Ag es 65 and older) 2022 Influenza Vaccine 09/07/2023 COVID-19 Vaccine ( - 2023-2 5 season) 2023 RSV Vaccine 60 years and old er and Patients (1 - 1-dose 75+ series) 2032 Hepatitis B Vaccines Aged Out No long er eligible based on patient's age to complete this topic Care Teams Bottling Equipment Sales Representative Relationship Specialty Start Date End Date Poppy Castillo MD [address] [place] [address] PCP - General Internal Medicine 05/09/23
--- OUTSIDE RECORDS SUMMARY | 2024-05-21 08:30 | XMS_ITS | Patient Health Record ---
Author Organization [facility] Address [address] [place] [address] Care Team Providers Care Picker Operator Name Role Phone Poppy Castillo MD Primary Care Provider Alexia Love Unavailable [phone] Allergies Allergen (clinical drug ingredient) Drug/Non Drug Allergy documented on EMR Reaction Allergy Type Onset Date Status latanoprost / netarsudil Rocklatan Unknown Drug Allergy Active doxycycline Doxycycline Unknown Drug Allergy Act aidan Shellfish (FN) Shellfish-derived Products Unknown Drug Allergy Active Reason For Referral No Information Medications Medication SIG (Take, Route, Frequency, Duration) Notes Start Date End Date Status Physical Therapy . . . 2-3x/week for 3- 4 weeks 06/30/2021 Not-Taking Feldene 20 MG 1 capsule with food Orally Once a day for 30 day(s) 06/30/2021 Not-Taking Physical Therapy . . . 2-3x/week [...] capsule Orall y Once a day Active Zioptan 0.0015 % 1 drop into affected eye in the evening Ophthalmic Once a day Not-Taking Ciclopirox Olamine 0.77 % 1 application Externally Twice a day for 30 days Active Feldene 20 MG 1 capsule with food Orally Once a day for 30 day(s) 07/01/2020 Not-Taking Immunizations Vaccine Route Administration Date Status Comme nts COVID-19 Moderna Vaccine Unknown 05/01/2020 Administere d COVID-19 Moderna Vaccine Unknown 06/03/2020 Administere d Social History Tobacco Use: Social History Observation [...] Are you an other tobacco user? No Problems Problem Type SNOMED Code ICD Code Onset Dates Problem Status W/U Status Risk Notes Problem Acquired hammer toe of right foot (2905072278934755) Other hammer toe(s) (acquired), right foot (M20.41) Active confirmed Problem Acquired hammer toe of left foot (8042338613255164) Other hammer toe(s) (acquired), left foot (M20.42) Active confirmed Problem Acquired hallux valgus (61109831) Hallux valgus (acquired), right foot (M20.11) Active confirmed Problem 374906372 Primary osteoarthritis, left ankle and foot (M19.072) Active confirmed Problem 644077103970373 Primary osteoarthritis, right ankle and foot (M19.071) Active confirmed Problem Acquired hammer toe of right foot (3937739506198415) Other hammer toe(s) (acquired), right foot (M20.41) Active confirmed Problem Acquired hammer toe of left foot (2023191366083401) Other hammer toe(s) (acquired), left foot (M20.42) Active confirmed Problem 1065990578165976 Equinus deformi ty of right foot (M21.6X1) Active confirmed Problem Acquired deformity of right foot (06210616582834738) PlantarFlexion of metatarsal of right foot (M21.6X1) Active confirmed Problem Acquired deformity of left foot (41159902178029982) PlantarFlexion of metatarsal of left foot (M21.6X2) Active confirmed Plan Of Treatment Pending Test Test Name Order Date *Uric Acid, Serum 12/08/2022 *CBC With Differential/Platelet 12/09/19 23 Rheumatoid Arthritis Factor 12/08/2022 C-Reactive Protein, Quant 12/08/2022 Lyme IgG/IgM Ab 12/08/2022 YEHUDA Comprehensive Panel 12/08/2022 Lyme Ab/Western Blot Reflex 12/08/2022 ESR 12/08/2022 X ray : Foot, left 3V 12/08/2022 X ray : Foot, right 3V 12/08/2022 22474,[id number] TENDON SHEATH/LIGAMENT 1 03/07/2022 Insurance Providers Payer Name Payer Address Payer Phone Subscriber Number Group Number Insured Name Patient Relationship to Insured Coverage Start Date Coverage End Date [employer] [address] [place] [address] [id number] Karin Alvarez Self - patient is the insured Medical (General) History Medical History History ICD Code Glaucoma Measles Mumps Chicken pox Surgical History Surgery Date(Month/Year) Lens replacement both eyes Xen replacement
--- OUTSIDE RECORDS SUMMARY | 2024-05-21 08:30 | XMS_ITS ---
Author Organization [facility] Address [address] [place] [address] Care Team Providers Care Lead Instructor/Flight Attendant Name Role Phone Poppy Castillo MD Primary Care Provider Unavaillaura Ramirez, Alexia Unavailable [phone] REASON FOR VISIT Labs Encounters Encounter Location Date Provider Diagnosis [address] [address] 12/10/2022 Alexiajose luis Ramirez Plan Of Treatment No Information Progress Notes * Karin CATSILLO LDOB:1955 (67 yo F)Acc No.[id number]:12/10/2022 Patient:?Karin Castillo :1955???Age:67 Y???Sex:Female [facility] [place], [address] * true * Date:? Generated for Printi lore/Fabrandong/eTransmitting on:?05/21/2024 08:29 AM EDT
--- OUTSIDE RECORDS SUMMARY | 2024-05-21 08:30 | XMS_ITS | Clinical Summary ---
Author Organization [facility] Address [address] [place] [address] Care Team Providers Care Triage Rn Name Role Phone Unavailable Primary Care Provider Unavailabl e Source Comments Please note that some or all of the patient's information could have additional privacy protections. State laws allow health care providers to render certain types of treatment to minors without parental consent. Please do not assume that this information can be shared solely by obtaining just the consent of the patient's parent/guardian. Please determine if all or part of the patient's care was rendered without parent/guardian involvement. And, if so, obtain the minor's consent prior to disclosure.[facility] Social History Tobacco Use Types Packs/Day Years Used Date Smoking Tobacco: Never Assessed Other Needs Answer Date Recorded Anything else about your child you'd like help w ith? Not on file 10/21/2022 Share good news about positive changes: Not on f ile 10/21/2022 Comments Unknown Sex and Gender Information Value Date Recorded Sex Assigned at Not on file Legal Sex Female 10:21 AM EST Gender Identity Not on file Sexual Orientation Not on file Plan of Treatment Health Maintenance Due Date Last Done Comments DTaP/TDAP/TD VACCINES (1 - Tdap) 1964 ADOLESCENT HIV SCREENING 1970 COVID-19 Vaccine ( season) 2023 06/03/2020, 05/04/2020, 05/01/2020 INFLUENZA (#1) 2023 NIRSEVIMAB VACCINES UNDER 8 MONTHS Aged Out No longer eligible b ased on patient's age to complete this topic Insurance [employer]
--- OUTSIDE RECORDS SUMMARY | 2024-05-21 08:30 | XMS_ITS ---
Author Organization [facility] Address [address] [place] [address] Care Team Providers Care Men'S Garment Fitter Name Role Phone Poppy Castillo MD Primary Care Provider Alexia Love Unavailable [phone] Margaux Farmer Unavailable [phone] Allergies Allergen (clinical drug ingredient) Drug/Non Drug Allergy documented on EMR Reaction Allergy Type Onset Date Status latanoprost / netarsudil Rocklatan Unknown Drug Allergy Active doxycycline Doxycycline Unknown Drug Allergy Act aidan Shellfish (FN) Shellfish-derived Products Unknown Drug Allergy Active REASON FOR VISIT pt states last pcp visit 09/2022, Heel pain Medications Medication SIG (Take, Route, Frequency, Duration) Notes Start Date End Date Status Travatan Z 0.004 % 1 drop into affected eye in the evening Ophthalmic Once a day Active Dorzolamide HCl-Timolol Mal 22.3-6.8 MG/ML 1 drop into affected eye Ophthalmic Twice a day Active Pantoprazole Sodium 20 MG 1 tablet Orall y Once a day for 30 day(s) Active Clotrimazole-Betamethason e 1-0.05 % 1 application Externally Twice a day Active Physical Therapy . . . 2-3x/week for 3- 4 weeks 12/08/2022 Active Feldene 20 MG 1 capsule with food Orally Once a day for 30 day(s) 06/30/2021 Not-Taking Physical Therapy . . . 2-3x/week for 3- 4 weeks 06/30/2021 Not-Taking Feldene 20 MG 1 capsule with food Orally Once a day for 30 day(s) 07/01/2020 Not-Taking Zioptan 0.0015 % 1 drop into affected eye in the evening Ophthalmic Once a day Not-Taking Social History Tobacco Use: Social History Observation [...] No Vital Signs Height 5ft 10in in 01/05/2023 Weight 197 lbs 01/05/2023 BMI 28.26 kg/m2 01/05/2023 Procedures Procedure Date Ordered Date Performed Result Body Sit e ,[id number] TENDON SHEATH/LIGAMENT 01/05/2023 N/A Encounters Encounter Location Date Provider Diagnosis [facility] [address] 01/05/2023 Margaux Farmer Plantar fasciitis, bilateral M72.2 Assessments Encounter Date Diagnosis (ICD Code) Assessment Notes Treatment Notes Treatment Clinical Notes Section Notes 01/05/2023 Plantar fasciitis, bilateral (ICD-10 - M72.2) Plan Of Treatment Pending Test Test Name Order Date ,[id number] TENDON SHEATH/LIGAMENT 1 03/07/2022 Next Appt Details Follow Up: 6 Weeks, Reason: Procedure Notes * Category Sub-Category Detail Notes Injection Tendon Sheath or Fascia , J 07 Injection - #1 LEFT foot, Plantar Fascia w/ mixture of [...] * Karin CASTILLO LDOB:1955 (67 yo F)Acc No.[id number]:01/05/2023 Progress Notes Patient:?Karin Castillo Provider:?Margaux Farmer DPM :1955???Age:67 Y???Sex:Female D ate:01/05/2023 [facility] Pcp:Poppy Castillo MD Subjective: * Chief Complaints: * ???Pt states last pcp visit 09/2022Heel pain * HPI: ???Heel pain:?Nature:?tenderness, sharp pain, stiffness , aching , throbbing.?Location:?Proximal plantar aspect of Heel , Arches , LEFT greater than Right.?Duration:?several months.?Onset/Cause:?unknown?, denies trauma.?Course:?improved , at approximately 30-40 %.?Aggrevated:?standing, walking, walking first thing after rest , shoe gear.?Treatments:?rest , change in shoes, NSAIDS, labs negative , physical therapy-has had a few weeks of session and relates is slowly improving.?Severity/Quality:?Pre-injection procedure pain assessment - ( 7 ) out of 10.? * ROS:?General/Constitutional:?Nausea?denies.?Vomiting?denies.?Hunger Thirst?denies.?Loss appetite?denies.?Chills?denies.?Fatigue?denies.?Fever?denies.?Night Sweats?denies.?Unexplained weight loss?denies.?Unexplained weight gain?denies.?HEENTM:?Dentures?denies.?Dizziness?denies.?Glasses/contacts?denies.?Retinopathy?de nies.?Blurred/double vision?denies.?TMJ?denies.?Discharge/drainage?denies.?Implants?denies.?Sore throat?denies.?Dental implants?denies.?Hard of hearing ?denies.?Difficulty chewing/swallowing/speaking?denies.?Nose bleeds?denies.?Sore mouth?denies.?Respiratory:?On Oxygen?denies.?Pneumonia/pleurisy?denies.?Bronchitis?denies.?Emphysema?denies.?C oughing?denies.?Cough blood?denies.?Shortness of breath?denies.?Wheezing?denies.?Cardiovascular:?Pacemaker?denies.?MVP?denies.?WPW?denies.?CHF?denies.?Heart attack?denies.?Septal defect?denies.?Rapid beat?denies.?Chest pain ?denies.?Atrial Fib.?denies.?Murmur/Palpitations?denies.?Gastrointestinal:?Hemorrhoids?denies.?Stomach/Abdominal pain?denies.?Dark blood stool?denies.?Irritable bowel ?denies.?Constipation?denies.?Diarrhea?denies.?Hematology:?Swelling?denies.?Clots?denies.?Varicose Veins?denies.?Bruising?denies.?Bleeding problem?denies.?Genitourinary:?Blood urine?denies.?Frequent/Painfu/urination/bladder control?denies.?Kidney stones?denies.?Infection (UTI)?denies.?Nephropathy?denies.?sex trans dis (STD)?denies.?Prostate?denies.?Musculoskeletal:?Hammertoes?denies.?Bunions?denies.?Back Pain?denies.?Muscle Cramps/ Resting?denies.?Muscle cramps / walking?denies.?Generalized aches and pains?admits.?Weakness?denies.?Integ.:?Alexander?denies.?Scars?denies.?Corns/calluses?denies.?Ingrown nails?denies.?Painful nails?denies.?Open Sores?denies.?Rashes?denies.?Neurologic:?Difficulty sleeping?denies.?Brain disorder?denies.?Numbness?denies.?Balance trouble?denies.?Confusion?denies.?Fainting/blackouts?denies.?Tingling?denies.?Tr emors?denies.? * Medical History:? * Surgical History:?Lens repla cement both eyes Xen replacement * Hospitalization/Major Diagno stic Procedure:?No Hospitalization History. * Family History:?Mother: mariangel e, heart attack, high blood pressure.?Father: , high [...] status: . ?Occupation: working at home. * Medications:?TakingTravatan Z 0.004 % Solution 1 drop into affected eye in the evening Ophthalmic Once a dayDorzolamide HCl-Timolol Mal 22.3-6.8 MG/ML Solution 1 drop into affected eye Ophthalmic Twice a dayPantoprazole Sodium 20 MG Tablet Delayed Release 1 tablet Orally Once a dayClotrimazole-Betamethasone 1-0.05 % Cream 1 application Externally Twice a dayPhysical Therapy . . . . 2-3x/weekTaking Travatan Z 0.004 % Solution 1 drop into affected eye in the evening Ophthalmic Once a dayTaking Dorzolamide HCl-Timolol Mal 22.3-6.8 MG/ML Solution 1 drop into affected eye Ophthalmic Twice a dayTaking Pantoprazole Sodium 20 MG Tablet Delayed Release 1 tablet Orally Once a dayTaking Clotrimazole-Betamethasone 1-0.05 % Cream 1 application Externally Twice [...] ProductsDoxycyclineRocklatanyes[Allergies Verified] Objective: * Vitals:?Ht: 5ft 10in, Wt:197 , BMI:28.26, Shoe size: 10, Ht-cm: 177.8 cm, Wt-k.36 kg. * Examination: ???General Examination: ?GENERAL APPEARANCE:?Reveals a [...] B/L.?HAIR GROWTH/TEXTURE/ELASTICITY/TURGOR:?normal, B/L.?PIGMENTATION:?normal, B/L.?EDEMA:?absent, B/L.?Dermatologic: ?SKIN FINDINGS:?Skin exam reveals normal texture, elasticity, and turgor. There are no masses. The interspaces are clear.?Orthopedic: ?MUSCLE STRENGTH:?5/5 all groups in a symmetrical [...] ROM, calor, or ecchymosis.? Assessment: * Assessment: 1.?Plantar fasciitis, bilate ral - M72.2 (Primary)? Plan: * Treatment: * Procedures:?Injection:?Tendon Sheath or Fascia?75719, J0702 Injection - #1 LEFT foot, Plantar Fascia w/ mixture of [...] ( 0-1) out of 10.? * Procedure Codes:?03234 INJ T ENDON SHEATH/LIGAMENT, Modifiers: XS J0702 INJ BETAMETHSN ACTAT&SOD PHOSPH-3MG * Preventive Medicine:? ??Counseling:?P.R.I.C.E.:?The patient was counseled on the use of [...] was dispensed to and reviewed with the patient.? * Follow Up:?6 Weeks * Images: * Sign off status: Completed [...] shoe gear Course: improved , at approx imately 30-40 % Treatments: rest , change in collins es, NSAIDS, labs negative , physical therapy-has had a few weeks of session and relates is slowly improving Examination Category Sub-Category Detail Notes Category Not [...] Achilles, 2/4, B/L Dermatologic SKIN FINDINGS: Skin exam reveal s normal texture, elasticity, and turgor. There are no masses. The interspaces are clear Orthopedic FOOT MORPHOLOGY: Pes Planus stru cture, [...]
[2024-05-21 08:36] VITALS: BP 124/70; PULSE 64; O2SAT 98; BMI 30.8
--- NOTE | 2024-05-21 08:36 | A.OFFVIS_ITS ---
Vital Signs 3 05/21/24 08:36 Height 5 ft 10 in Weight 215 lb BMI 30.8 BP 124/70 Blood Pressure Location Lt brachial Position Sitting Pulse 64 Pulse Source Pulse Oximeter Pulse Oximetry (%) 98 Oxygen Delivery Method Room Air Intake Visit Reasons: Follow up Silk Weaver Required: No Accompanied by: Self / Same As Patient Allergies doxycycline Allergy (Mild, Verified 05/21/24 08:39) Itchy Throat shellfish derived Allergy (Verified 05/21/24 08:39) Hives Medication List - Last Reconciled 05/21/24 by RUSSEL Kevin bimatoprost 0.01% (Lumigan) 1 drp ophthalmic (eye) DAILY brimonidine 0.1% (Alphagan P) 1 drp ophthalmic (eye) Q8H dorzolamide-timolol 22.3-6.8 mg/mL (Cosopt) 1 drp ophthalmic (eye) BID ubrogepant (Ubrelvy) 50 - 100 mg (0.5 - 1 x 100 mg) PO ONCE PRN 30 days HPI Comments Details: 69-yr-old female presents for f/u visit. Pt denies any significant interval medical changes. Patient reports that her eye/vision symptoms are now being attributed to dry eye. She underwent plug placement, which was helpful, however 1 of the plugs has dislodged and she needs to follow-up with her log stacker operator. She is occasionally needing to use Ubrelvy for a more classic migraine attack, which is effective. She continues to be very compliant with her CPAP therapy, and continues to sleep well with the use with good daytime energy. Review of her recent PAP compliance report reveals: PAP compliance report from 04/21/2024 through 05/20/2024 Overall usage and usage greater than 4 hours 100% Average usage on days used 6 hours and 23 minutes APAP 5-20 cm H2O with EPR 3 Maximum PAP pressure 18.5 cm H2O Average leaks 0 L/min Residual AHI 4.6 per hour 05/29/2023, previous HPI: Brain and Orbit MRI was normal. Brain MRA was not completed. Initially, the Propranolol was helpful, but in the last month or two, she has had 2 prolonged attacks lasting up to 10 days. Tolerating the Propranol ER 80mg well- no increased fatigue, no lightheadedness. Her HR today is 66bpm. Baseline headache characteristics: Right eye visual aura w/o headache. She describes this as Right eye full visual field blurriness, like a film covering the eye, f/b eye feeling warm/swollen, retro-orbital hot swollen discomfort, the vision becomes cloudier and blurrier, may feel frustration and just wants to sit still. Always feels photophobic. Denies N/V, red eye, watery eye, facial droop. The entire attack lasts 10 days, during which 1 day where the vision improves some, then the episode resolve within a few days. Once has the start of symptoms in the left eye- but did not fully progress. Pt is compliant w/ CPAP. Sleeps well w/ use. Does not have nightmares when uses CPAP. Compliance Report Usage 04/29/2023 - 05/28/2023 Usage days 30/30 days (100%) >= 4 hours 29 days (97%) < 4 hours 1 days (3%) Usage hours 181 hours 55 minutes Average usage (total days) 6 hours 4 minutes Average usage (days used) 6 hours 4 minutes AirSense 10 AutoSet Serial number [id number] Mode AutoSet Min Pressure 5 cmH2O Max Pressure 20 cmH2O, w/ Maximum: 16.6 cmH2O. Residual AHI: 2.2/hr. [facility] Medical History (Updated 02/27/23 @ 09:46 by RUSSEL Kevin) Glaucoma Family History Mother Depression Breast cancer Dementia Sister MARCELINA (obstructive sleep apnea) Father Hypertension Social History Alcohol intake: current Alcohol intake frequency: holidays/special occasions only Patient Tobacco Use Status: Never used Tobacco Physical Exam Vital Signs: Last Vital Signs Pulse 64 05/21/24 08:36 BP 124/70 05/21/24 08:36 Pulse Ox 98 05/21/24 08:36 Oxygen Delivery Method Room Air 05/21/24 08:36 BMI result Body Mass Index 30.8 Const General: cooperative and no acute distress Orientation/consciousness: patient oriented x3 Resp Effort & Inspection: normal respiratory effort and able to speak in complete sentences Neuro General: patient oriented x3 Cranial nerves: Yes CN's II-XII intact bilaterally Cognition (Neuro): normal cognition Psych Appearance: grossly normal Mental Status: mental status grossly normal Speech and movement: Normal speech and movement present Affect: normal affect Attitude: cooperative Results Reviewed Results Reviewed: Assessment & Plan Assessment & Plan (1) Migraine with aura: Code(s): G43.109 - Migraine with aura, not intractable, without status migrainosus Category: Medical (2) Pain, eye, right: Comment: a/w right eye visual disturbance Code(s): H57.11 - Ocular pain, right eye Category: Medical (3) Transient visual loss: Comment: Prolonged bouts of right eye vision blurriness/loss lasting up to 10 days Code(s): H53.129 - Transient visual loss, unspecified eye Category: Medical (4) Obstructive sleep apnea: Code(s): G47.33 - Obstructive sleep apnea (adult) (pediatric) Category: Medical Plan Continue APAP 5-81dcW2U nightly > 4 hrs, as pt is having good clinical effect from use. ? Regarding prolonged right eye vision disturbance and eye pain: Previous labs- unremarkable. ESR- 16, YEHUDA- negative. Previous eye exam- stable glaucoma. Follow-up with new log stacker operator regarding dry eye. Continue OTC teardrops for moderate to severe dry eye. Previous Brain and Orbit MRI w/wo- normal. Hold Brain MRA w/o as patient's eye symptoms have improved with treatment of dry eye Patient has stopped Propranolol ER- as was no longer effective. Continue Ubrogepant 50-100mg at onset of migraine attack, may take w/ Zolmitriptan or Ibuprofen. Previous acute headache treatment trials: Sumatriptan- caused jaw pain. Rizatriptan ineffective. ? Follow-up upon review of above and in 6 months or sooner prn. Coding Level of Care Code Est Pt Level 4 (36960) Diagnoses Migraine with aura G43.109 Pain, eye, right H57.11 Transient visual loss H53.129 Obstructive sleep apnea G47.33
== END 2024-05-21 09:26 | disposition home or self-care (01) ==
LOC: HO.HSMS 08:24
PROVIDERS: PCP Nurse Practitioner Family; Visit Provider Nurse Practitioner Family
DX: G43.109 Migraine with aura, not intractable, without status migrainosus (principal); H57.11 Ocular pain, right eye; H53.129 Transient visual loss, unspecified eye; G47.33 Obstructive sleep apnea (adult) (pediatric)
CPT/HCPCS: 99214

== ENCOUNTER → 2024-05-21 08:23 | Outpatient (BNVA) | payer BC, SELFPAY | PROVIDERS: PCP Nurse Practitioner Family; Visit Provider Nurse Practitioner Family ==

== ENCOUNTER 2024-10-30 11:11 | Outpatient (REF) | payer SELFPAY ==
--- OUTSIDE RECORDS SUMMARY | 2024-10-30 14:22 | XMS_ITS | Clinical Summary ---
Author Organization [facility] Address [address] [place] [address] Care Team Providers Care Compensation And Benefits Manager Name Role Phone Poppy Castillo MD Primary Care Provider [phone] Allergies Active Allergy Reactions Criticality Noted Date Comments Doxycycline Other (See Comments) 05/09/2023 UPSETS THROAT Netarsudil-Latanoprost Other (See Comments) 03/2023 EYE IRRITATION Medications meloxicam (MOBIC) 7.5 MG tabletIndication s:Pain in left ankle and joints of left foot Take 1 tablet (7.5 mg total) by mouth daily. 21 tablet 1 05/09/2023 Active Active Problems No known active problems Social History Tobacco Use Types Packs/Day Years Used Date Smoking Tobacco: Never Assessed Comments Unknown Sex and Gender Information Value Date Recorded Sex Assigned at Not on file Legal Sex Female 4:20 PM EST Gender Identity Female 05/09/2023 8:30 AM EDT Sexual Orientation Not on file Plan of Treatment Health Maintenance Due Date Last Done Comments Advance Care Planning 1955 Hepatitis C Virus Screening 1955 DTaP/Tdap/Td Vaccines (1 - Tdap) 1976 Mammogram 1997 Colonoscopy 2002 Pneumococcal Vaccines 50+ (1 of 1 - PCV) 04/12/2007 Zoster (Shingles) Vaccine (1 of 2) 04/12/2007 DXA Bone Density (Females,Ag es 65 and older) 2022 Influenza Vaccine 09/06/2024 COVID-19 Vaccine ( - 2023-2 5 season) 2024 RSV Vaccine 60 years and old er and Patients (1 - 1-dose 75+ series) 2032 Hepatitis B Vaccines Aged Out No long er eligible based on patient's age to complete this topic Insurance [facility] PPO Care Teams Compensation And Benefits Manager Relationship Specialty Start Date End Date Poppy Castillo MD [address] [place] [address] PCP - General Internal Medicine 05/09/23
--- OUTSIDE RECORDS SUMMARY | 2024-10-30 14:22 | XMS_ITS | Patient Health Record ---
Author Organization [facility] Address [address] [place] [address] Care Team Providers Care Podiatrist Assistant Name Role Phone Poppy Castillo MD Primary Care Provider Alexia Love Unavailable [phone] Allergies Allergen (clinical drug ingredient) Drug/Non Drug Allergy documented on EMR Reaction Allergy Type Onset Date Status latanoprost / netarsudil Rocklatan Unknown Drug Allergy Active doxycycline Doxycycline Unknown Drug Allergy Act aidan Shellfish (FN) Shellfish-derived Products Unknown Drug Allergy Active Reason For Referral No Information Medications Medication SIG (Take, Route, Frequency, Duration) Notes Start Date End Date Status Physical Therapy . . . 2-3x/week; Duration: 3-4 weeks 06/30/2021 Not-Taking Feldene 20 MG 1 capsule with food Orally Once a day; Duration: 30 day(s) 06/30/2021 Not-Taking Physical Therapy . . . 2-3x/week; Duration: 3-4 weeks 12/08/2022 Active Clotrimazole-Betamethason e 1-0.05 % 1 application Externally Twice a day Active Pantoprazole Sodium 20 MG 1 tablet Orall y Once a day; Duration: 30 day(s) Active Dorzolamide HCl-Timolol Mal 22.3-6.8 [...] 0.77 % 1 application Externally Twice a day; Duration: 30 days Active Feldene 20 MG 1 capsule with food Orally Once a day; Duration: 30 day(s) 07/01/2020 Not-Taking Immunizations Vaccine Route [...] Problem Status W/U Status Risk Notes Problem Information temporarily unavailable Other hammer toe(s) (acquired), right foot (M20.41) Active confirmed Problem Information temporarily unavailable Other hammer toe(s) (acquired), left foot (M20.42) Active confirmed Problem Information temporarily unavailable Hallux valgus (acquired), right foot (M20.11) Active confirmed Problem Information temporarily unavailable Primary osteoarthritis, left ankle and foot (M19.072) Active confirmed Problem Information temporarily unavailable Primary osteoarthritis, right ankle and foot (M19.071) Active confirmed Problem Information temporarily unavailable Other hammer toe(s) (acquired), right foot (M20.41) Active confirmed Problem Information temporarily unavailable Other hammer toe(s) (acquired), left foot (M20.42) Active confirmed Problem Information temporarily unavailable Equinus deformity of right foot (M21.6X1) Active confirmed Problem Information temporarily unavailable PlantarFlexion of metatarsal of right foot (M21.6X1) Active confirmed Problem Information temporarily unavailable PlantarFlexion of metatarsal of left foot (M21.6X2) [...] X ray : Foot, right 3V 12/08/2022 [id number] TENDON SHEATH/LIGAMENT 1 03/07/2022 Insurance Providers Payer Name Payer Address Payer Phone Subscriber Number Group Number Insured Name Patient Relationship to Insured Coverage Start Date Coverage End Date [facility] [address] [place] [address] [phone] [id number] Karin Alvarez Self - patient is the insured Medical (General) History Medical History History ICD Code Glaucoma Measles Mumps Chicken pox Surgical History Surgery Date(Month/Year) Lens replacement both eyes Xen replacement
--- OUTSIDE RECORDS SUMMARY | 2024-10-30 14:22 | XMS_ITS ---
Author Name [facility] Organization Unknown History of Medication Use Medication Directions Dispensed Refills Start Date End Date Stat us meloxicam (MOBIC) 7.5 MG tablet Take 1 tablet (7.5 mg total) by mouth daily. 05/09/2023 active Allergies Allergen Reaction Severity Comment Documented Date Source Statu s NETARSUDIL-LATANO PROST OTHER (SEE COMMENTS) EYE IRRITATION 05/09/2023 [facility] active DOXYCYCLINE OTHER (SEE COMMENTS) UPSETS THROAT [facility] Problems Problem Status Onset Date Problem Type Date of Resoluti on Source Pain in right ankle and joints of right foot active EncounterDiagnosisAct [facility] Pain in left ankle and joints of left foot active EncounterDiagnosisAct [facility] Plantar fasciitis active EncounterDiagnosisAct [facility] Finger injury, right, initial encounter active EncounterDiagnosisAct [facility] Encounters Encounter Type Encounter Reason Primary Diagnosis Location Date Ambulatory Pain in left ankle and joints of left foot Pain in left ankle and joints of left foot [facility] 05/09/2023 Ambulatory Pain in left ankle and joints of left foot Pain in left ankle and joints of left foot [facility] 05/09/2023 Care Team Organization Name Specialty Phone Email Start Date End Da te [facility] JESUS DASH Primary Care 05/09/2023 [facility] J[facility]US DASH Primary Care 05/09/2023 04/24/2024 [facility] NO PCP Primary Care 05/05/2023 [facility] 04/14/2023 [facility] 01/27/2022
--- OUTSIDE RECORDS SUMMARY | 2024-10-30 14:22 | XMS_ITS | Clinical Summary ---
Author Organization [facility] Address [address] [place] [address] Care Team Providers Care Surgery Scheduler Name Role Phone Unavailable Primary Care Provider [...] so, obtain the minor's consent prior to disclosure.[facility] Social History Tobacco Use Types Packs/Day [...] HIV SCREENING 1970 COVID-19 Vaccine ( season) 2024 06/03/2020, 05/04/2020, 05/01/2020 INFLUENZA (#1) 2024 NIRSEVIMAB VACCINES UNDER 8 MONTHS Aged Out No longer eligible b ased on patient's age to complete this topic Insurance [place]
== END 2024-10-30 11:12 | disposition home or self-care (01) ==
LOC: HO.HAP 11:11
PROVIDERS: Visit Provider Nurse Practitioner Family
DX: Z13.89 Encounter for screening for other disorder (principal)